=== PATIENT | female | born 1985 | race Caucasian/White ===

== ENCOUNTER 2017-03-21 16:33 | Emergency (ER) | payer OTHER ==
[~2017-03-21] VITALS: Ht 165.1 cm; Wt 83.5 kg
[~2017-03-21 16:33] MED LIST: BIRTH CONTROL PILL; CIPRO500 MG PO; HYDROCODON-ACE1 EAC8 PO; KEFLEX500 MG PO; NORCO 5-325 TA1 EACH PO; PRENATA CHEWAB1 EACH PO; SEASONIQUE 0.11 EACH PO; ZOFRAN ODT8 MG PO; ZOFRAN4 MG PO
[2017-03-22] MEDS ORDERED: ASHLYNA 0.15-01 EACH PO (16:14)
== END 2017-03-21 18:10 | disposition home or self-care (01) ==
LOC: ED 16:33
DX: Z53.21 Procedure and treatment not carried out due to patient leaving prior to being seen by health care provider (principal)

== ENCOUNTER 2017-03-22 16:00 | Emergency (ER) | payer OTHER ==
[~2017-03-22] VITALS: Ht 165.1 cm; Wt 81.7 kg
[2017-03-22] MEDS ORDERED: ASHLYNA 0.15-01 EACH PO (16:14)
== END 2017-03-22 17:10 | disposition home or self-care (01) ==
LOC: ED 16:00
DX: S20.222A Contusion of left back wall of thorax, initial encounter (principal); F17.200 Nicotine dependence, unspecified, uncomplicated; Z79.899 Other long term (current) drug therapy; Y04.8XXA Assault by other bodily force, initial encounter
CPT/HCPCS: 73010; 99283

== ENCOUNTER 2017-10-10 10:02 | Emergency (ER) | payer OTHER ==
[~2017-10-10] VITALS: Ht 165.1 cm; Wt 81.7 kg
[~2017-10-10 10:02] MED LIST changes: +ASHLYNA 0.15-01 EACH PO
[2017-10-10] MEDS ORDERED: SEASONIQUE 0.11 EACH PO (10:14)
--- NOTE | 2017-10-10 11:46 | EKG ---
[facility] [address] [facility] [place] [address] Signed Sinus bradycardia Otherwise normal ECG When compared with ECG of 16-FEB-2016 11:57, Vent. rate has decreased BY 32 BPM Confirmed by NINOSKA OCONNOR MD ([id number]) on 10/10/2017 11:46:17 AM Electronically Signed By: NINOSKA OCONNOR MD 10/10/17 1146 PATIENT NAME: REED REESE Electrocardiogram DATE OF : 81 PHYSICIAN: NINOSKA OCONNOR MD REPORT #: [id number] REPORT IS CONFIDENTIAL AND NOT TO BE RELEASED WITHOUT AUTHORIZATION
[2017-10-10] MEDS ORDERED: MACROBID 100 M100 MG PO (12:21)
== END 2017-10-10 12:35 | disposition home or self-care (01) ==
LOC: ED 10:02
DX: R55 Syncope and collapse (principal); N39.0 Urinary tract infection, site not specified; F17.200 Nicotine dependence, unspecified, uncomplicated; Z79.899 Other long term (current) drug therapy
CPT/HCPCS: 80053; 81001; 84703; 85025; 93005; 93010; 96361; 96374; 96375; 99284; J1885; J2405; J7030

== ENCOUNTER 2018-12-03 22:52 | Emergency (ER) | payer OTHER ==
[~2018-12-03] VITALS: Ht 165.1 cm; Wt 72.6 kg
[~2018-12-03 22:52] MED LIST changes: +IBUPROFEN600 MG PO; +MACROBID 100 M100 MG PO; +ULTRAM50 MG PO
--- OUTSIDE RECORDS SUMMARY | 2018-12-03 22:54 | XMS ---
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 Gisselle VISIT COUNT (12 MO.) 2 YAZMIN Patino TOTAL 2 NOTE: Visits indicate total known visits. ED/UCC VISIT TRACKING (12 MO.) 12/03/2018 22:53 [facility] [place] TYPE: Emergency COMPLAINT: - FOREGIN OBJECT IN EAR 05/03/2018 17:[address] [facility] [place] TYPE: Emergency COMPLAINT: - R SIDE ABD PAIN DIAGNOSES: - Nicotine dependence, unspecified, uncomplicated - Unspecified abdominal pain - Tubulo-interstitial nephritis, not specified as acute or chronic INPATIENT VISIT TRACKING (12 MO.) No inpatient visits to display in this time frame [email or web address]
== END 2018-12-03 23:45 | disposition home or self-care (01) ==
LOC: ED 22:52
DX: T16.2XXA Foreign body in left ear, initial encounter (principal); F17.200 Nicotine dependence, unspecified, uncomplicated
CPT/HCPCS: 99282

== ENCOUNTER 2020-07-30 11:48 | Inpatient (IN) | payer OTHER ==
[~2020-07-30] VITALS: Ht 165.1 cm; Wt 91.2 kg
--- NOTE | 2020-08-04 07:35 | NUR ---
both nares swabbed for covid-19 without complication. sample taken to [facility] for rapid testing.
--- NOTE | 2020-08-04 12:57 | PR ---
[facility] [address] [facility] [place], [place] [address] Signed Progress Notes IP Datetime Report Generated by CPN: 08/04/2020 12:56 PROGRESS NOTES: [id number] Impression: Normal Progression of Labor Procedures: Artificial ROM Plan: Continue Present Management; Anesthesia Consult VITAL SIGNS: [id number] EXAM: [id number] Dilatation: 3.0 Effacement: 60 Station: -3 Contractions: none MEMBRANES: [id number] Membranes Status: Ruptured Comments: 34 yo @ 40.1 MIOL for AMA s/p cytotec x 1 AROM performed yielding large amount of fluid Planning epidural, anesthesia notified If no cervical change in 2 hours then pitocin FETUS A: [id number] FHR Baseline: 120 Variability: Moderate 6-25bpm Accelerations: 15X15 Decelerations: None FHR Category: Category I Comments on Fetus A: no evidence of acidemia FETUS B: [id number] Signing Physician: Jeff Ernandez DO Copies: ~ *Electronically Signed* 08/04/20 1256 JEFF ERNANDEZ DO PATIENT NAME: REED REESE PROGRESS NOTE DATE OF : [birth year] PHYSICIAN: JEFF ERNANDEZ DO [facility] #: [id number] REPORT IS CONFIDENTIAL AND NOT TO BE RELEASED WITHOUT AUTHORIZATION
--- NOTE | 2020-08-04 18:35 | PR ---
[facility] [address] [facility] [place], [place] [address] Signed Progress Notes IP Datetime Report Generated by CPN: 08/04/2020 18:35 PROGRESS NOTES: [id number] Impression: Reassuring Heart Rate Procedures: Intrauterine Pressure Catheter; Scalp Electrode; Sterile Vag Exam Plan: Continue Present Management; Anesthesia Consult Other Plans: Pitocin VITAL SIGNS: [id number] EXAM: [id number] Dilatation: 4.0 Effacement: 70 Station: -2 Contractions: none MEMBRANES: [id number] Membranes Status: Ruptured Comments: IUPC and FSE placed without difficulty Low-dose pitocin started, titrate to adequate contractions FETUS A: [id number] FHR Baseline: 120 Variability: Moderate 6-25bpm Accelerations: 15X15 Decelerations: None FHR Category: Category I Comments on Fetus A: no evidence of acidemia FETUS B: [id number] Signing Physician: Jeff Ernandez DO Copies: ~ *Electronically Signed* 08/04/20 1835 JEFF ERNANDEZ DO PATIENT NAME: REED REESE PROGRESS NOTE DATE OF : 81 PHYSICIAN: JEFF ERNANDEZ DO RPT #: [id number] REPORT IS CONFIDENTIAL AND NOT TO BE RELEASED WITHOUT AUTHORIZATION
--- NOTE | 2020-08-05 21:15 | PR ---
[facility] [address] [place], [place] [address] Signed PP Progress Notes Datetime Report Generated by CPN: 08/05/2020 21:15 SUBJECTIVE: [id number] Pain: Within Normal Limits Nausea/Vomiting: Denies Flatus: No Bowel Movement: No Vital Signs: [id number] Vital Signs: Reviewed Cardiovascular: Normal Respiratory: Normal Abdomen/Uterus: Normal Extremities: Normal Progress: Normal Exam Comments: NAD fundus firm extremities with trace edema IMPRESSION/PLAN/PROCEDURES: [id number] Impression: Normal Progression Plan: Continue Present Management Procedures: None Progress Notes: PPD#1 s/p with manual extraction of placenta s/p Ancef for manual extraction Initial leukocytosis this am (WBC 22); down to 19.7 on repeat CBC this evening Otherwise normal recovery - ambulating, voiding, tolerating regular diet. No dizziness/lightheadedness. Good milk output from left breast, clear discharge from right but feeling engorged. Discussed pumping on right to stimulate production/letdown, pt will try. Hopes to go home tomorrow. Planning partner vasectomy and likely progestin-only pill for contraception. Signing Physician: Jeff Ernandez DO Copies: ~ *Electronically Signed* 08/05/20 9984 JEFF ERNANDEZ DO PATIENT NAME: REED REESE PROGRESS NOTE DATE OF : [birth year] PHYSICIAN: JEFF ERNANDEZ DO [facility] #: [id number] REPORT IS CONFIDENTIAL AND NOT TO BE RELEASED WITHOUT AUTHORIZATION
--- NOTE | 2020-08-06 10:16 | PR ---
[facility] [address] [facility] [place] [facility] [place], [place] [address] Signed PP Progress Notes Datetime Report Generated by CPN: 08/06/2020 10:16 SUBJECTIVE: [id number] Pain: Within Normal Limits Nausea/Vomiting: Denies Flatus: Yes Bowel Movement: No Vital Signs: [id number] Vital Signs: Reviewed; Within Normal Limits Cardiovascular: Normal Respiratory: Normal Abdomen/Uterus: Normal Lochia: Normal Vulva/Perineum: Normal Breasts: Normal CVA Tenderness: Normal Extremities: Normal Progress: Normal Exam Comments: NAD fundus firm extremities with trace edema IMPRESSION/PLAN/PROCEDURES: [id number] Impression: Normal Progression Plan: Discharge Procedures: None Progress Notes: PPD#2 s/p with manual extraction of placenta Doing well afebrile, VSS Hgb stable, WBC downtrending as of last night Desires progestin-only pill for contraception without difficulty Anticipate DC to home today Signing Physician: Jeff Ernandez DO Copies: ~ *Electronically Signed* 08/06/20 JEFF BLACK DO PATIENT NAME: REED REESE PROGRESS NOTE DATE OF : 81 PHYSICIAN: JEFF ERNANDEZ DO RPT #: [id number] REPORT IS CONFIDENTIAL AND NOT TO BE RELEASED WITHOUT AUTHORIZATION
--- NOTE | 2020-08-07 13:42 | PATH ---
[facility] [address] [place], [place] [address] Signed SPECIMEN(S): A PLACENTA SPECIMEN SOURCE: A. PLACENTA CLINICAL HISTORY: Mother's age: 34. OB history: A2 (not specified spontaneous/elective). Gestational age: 40 and 1. 's weight: 6 lbs 10 oz. score: 8/9. Rh positive (Rhogam no). Maternal serologies: Rubella immune, RPR negative, hepatitis screen negative, GBS negative. Specific issues of concern: Odor and missing fragments upon initial delivery of placenta requiring manual extraction of retained products. FINAL PATHOLOGIC DIAGNOSIS: 355 gram gomez third trimester placenta with: - Early acute subchorionitis. - Maternal inflammatory response: Stage 1 early, grade 1 mild. - inflammatory response: Not identified. - Marked meconium. - Mild subchorionic and intervillous fibrin with scattered microcalcifications. - Third trimester villous pattern with focal villous edema. - Trivascular umbilical cord. DWS:cml:C2NR MICROSCOPIC EXAMINATION: Histologic sections of all submitted blocks are examined by light microscopy. These findings, together with the gross examination, support the pathologic diagnosis. GROSS DESCRIPTION: The specimen, labeled "CP, placenta," is received fresh and placed in formalin and consists of a fragmented discoid placenta with the following parameters: Umbilical cord: Insertion eccentric, measurement 23.5 x 1.2 cm; trivascular. Additional cord segment measures 6.5 x 1.2 cm. Cord coiling index (per 10 cm): Four. Lesions: Not grossly identified. Membranes: Insertion site: Marginal, santamaria/translucent, rupture site unremarkable; intact. Other: Not grossly identified. Chorionic Plate: Normal radiating vascular pattern, blue-purple and shiny. Lesions: Not grossly identified. Other: Not grossly identified. PATIENT NAME: REED REESE PATHOLOGY DATE OF : 81 REPORT #: [id number] PHYSICIAN: LUANN PATHOLOGY PCP: CORA CRUZ DO REPORT IS CONFIDENTIAL AND NOT TO BE RELEASED WITHOUT AUTHORIZATION [facility] [address] [place], [place] [address] Signed Maternal Surface: Normal cotyledons, fragmented. Lesions: Completeness cannot be confirmed. Measurement: 17.5 x 16 x 1.2 cm in aggregate. Weight (trimmed): 355 grams. Cut Surface: Maroon and spongy. Lesions: Not grossly identified. Basal plate fibrin measures 0.1 cm in thickness. Other Findings: Not grossly identified. Cassette Summary: (A1) Membranes and umbilical cord (A2) Placenta parenchyma (A3) Placenta parenchyma (A4) Placenta parenchyma JS (under the direct supervision of a pathologist) The Gross Description was prepared using a voice recognition system. The report was reviewed for accuracy; however, sound-alike word errors, addition and/or deletions may occur. If there is any question about this report, please contact Client Services. PERFORMING LABORATORY: The technical component was performed by [email or web address], [address] [place] [id number] (Healthcare Facility Administrator: Mana Aguirre MD; CLIA# [id number]). Professional interpretation was performed by [email or web address], [facility], [address] [place] [id number] (CLIA#: [id number]). Diagnostician: Noe Stewart MD Pathologist Electronically Signed 08/07/2020 Copies: ~ PATIENT NAME: REED REESE PATHOLOGY DATE OF : 81 REPORT #: [id number] PHYSICIAN: LUANN PATHOLOGY PCP: CORA CRUZ DO REPORT IS CONFIDENTIAL AND NOT TO BE RELEASED WITHOUT AUTHORIZATION
== END 2020-08-06 12:20 | disposition home or self-care (01) | DRG 807 ==
LOC: FBC 07-31 11:13
PROVIDERS: ADMIT Obstetrics & Gynecology; ATTEND Obstetrics & Gynecology
PROC: 10E0XZZ Delivery of Products of Conception, External Approach (ICD-10-PCS; principal; 2020-08-04)
PROC: 10907ZC Drainage of Amniotic Fluid, Therapeutic from Products of Conception, Via Natural or Artificial Opening (ICD-10-PCS; 2020-08-04)
PROC: 10H07YZ Insertion of Other Device into Products of Conception, Via Natural or Artificial Opening (ICD-10-PCS; 2020-08-04)
PROC: 00HU33Z Insertion of Infusion Device into Spinal Canal, Percutaneous Approach (ICD-10-PCS; 2020-08-04)
PROC: 3E0R3BZ Introduction of Anesthetic Agent into Spinal Canal, Percutaneous Approach (ICD-10-PCS; 2020-08-04)
PROC: 10D17Z9 Manual Extraction of Products of Conception, Retained, Via Natural or Artificial Opening (ICD-10-PCS; 2020-08-04)
PROC: 3E0P7VZ Introduction of Hormone into Female Reproductive, Via Natural or Artificial Opening (ICD-10-PCS; 2020-08-04)
DX: O99.334 Smoking (tobacco) complicating childbirth (principal); Z37.0 Single live birth; F17.210 Nicotine dependence, cigarettes, uncomplicated; Z20.822 Contact with and (suspected) exposure to COVID-19; Z3A.40 40 weeks gestation of pregnancy; O73.1 Retained portions of placenta and membranes, without hemorrhage; O77.0 Labor and delivery complicated by meconium in amniotic fluid; O99.344 Other mental disorders complicating childbirth; F41.9 Anxiety disorder, unspecified; Z79.899 Other long term (current) drug therapy
CPT/HCPCS: 01960; 36415; 85025; 85027; 88307; C9803; J0690; J2590; J2795; J7121; U0003

== ENCOUNTER 2024-12-13 09:22 | Emergency (ER) | payer OTHER ==
[~2024-12-13] VITALS: Ht 160 cm; Wt 70.5 kg
[~2024-12-13 09:22] MED LIST changes: +CARAFATE1 GM PO; +ONDANSETRON ODT8 MG PO; +PROTONIX40 MG PO
--- OUTSIDE RECORDS SUMMARY | 2024-12-13 09:29 | XMS ---
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 EJayna VISIT COUNT (12 MO.) 1 YAZMIN Patino TOTAL 1 NOTE: Visits indicate total known visits. ED/UCC VISIT TRACKING (12 MO.) 12/13/2024 09:22 [facility] [place] TYPE: Emergency COMPLAINT: - URINE PROBLEM INPATIENT VISIT TRACKING (12 MO.) No inpatient visits to display in this time frame [email or web address]
[2024-12-13 10:12] LABS: BLOOD/HGB, URINE LARGE (Negative); KETONE, URINE NEGATIVE (Negative); LEUK ESTERASE, URINE TRACE (negative); NITRITE, URINE POSITIVE (negative)
[2024-12-13 10:16] LABS: BACTERIA, URINE RARE /hpf (negative); CASTS, URINE NONE SEEN \\lpf; CRYSTALS, URINE NONE SEEN (0-1+); EPITHELIAL CELLS, URINE SQUAMOUS 3+ /lpf (0-1+); REFLEX CULTURE, URINE No (No)
[2024-12-13] MEDS ORDERED: CEPHALEXIN500 MG PO ×2 (10:58→11:02)
[2024-12-13] MEDS ORDERED: FLUCONAZOLE150 MG PO (10:59)
[2024-12-13] MEDS ORDERED: CEFTRIAXONE SOD 1,000 MG/10 ML VIAL IM ONE (11:00)
[2024-12-13] MEDS ORDERED: IBUPROFEN 600 MG TAB PO ONE (11:00)
[2024-12-13] MEDS ORDERED: ACETAMINOPHEN 500 MG TAB PO ONE (11:00)
[2024-12-13 11:30] VITALS: BP 106/82
== END 2024-12-13 11:30 | disposition home or self-care (01) ==
LOC: ED 09:22
PROVIDERS: Emergency Medicine
DX: N39.0 Urinary tract infection, site not specified (principal); R31.9 Hematuria, unspecified; Z87.891 Personal history of nicotine dependence; Z79.899 Other long term (current) drug therapy
CPT/HCPCS: 81001; 84703; 96372; 99284; A9270; J0696